=== PATIENT | male | born 1935 | race Caucasian/White ===

== ENCOUNTER 2017-03-07 14:41 | Observation (INO) | payer MEDICARE, OTHER ==
[2017-03-07] MEDS ORDERED: Zolpidem 5 MG Tab PO PRN (15:04)
[2017-03-07] MEDS ORDERED: Pantoprazole 40 MG Vial IVPUSH ONE (15:04)
[2017-03-07] MEDS ORDERED: Ondansetron 4 MG Tab.DIS PO PRN (15:04)
[2017-03-07] MEDS ORDERED: Acetaminophen 325 MG Tab PO PRN (15:04)
[2017-03-07] MEDS ORDERED: Lactated Ringers 1,000 ML IV SCH (15:15)
[2017-03-07 17:03] LABS: CHLORIDE,CL 102 mEq/L (98-106); SODIUM,NA 140 mEq/L (136-145)
[2017-03-07] MEDS ORDERED: FLU Vacc QS 2017-18 (36mos UP)/PF 60 MCG/0.5 ML Syringe IM ONE (17:30)
[2017-03-08] MEDS ORDERED: Aspirin 81 MG Tab.EC PO SCH (08:00)
[2017-03-08 08:35] VITALS: BP 146/92
--- NOTE | 2017-03-08 19:58 | PCM.DCSUM1 ---
Discharge Summary - Hospital Course Free Text/Narrative:: Patient was admitted by Dr. Cordero for diarrhea, feeling lightheaded and weak for one week. He had tried taking Mylanta without relief. No fevers. Patient states abdomen was sore but no considerable abdominal discomfort, bloating or blood in stools. Hasn't noted any weight loss. Admitted for rehydration, labs , stool studies and observation. - Discharge Data Discharge Date: 03/08/17 Discharge Disposition: Home, Self-Care 01 Condition: Good - Patient Summary/Data Complications: none Hospital Course: Patient is feeling much better this am. No fevers. Were able to collect stool for studies last evening, c diff negative. Patient is feeling stronger, no further lightheadedness. Up and around this am without complaint. Abdomen soft and nontender. Initial labs done on admit show WBC of 8.6, CRP negative. UA clear. BMP stable. Discharge home on Questran daily for ongoing diarrhea. Follow up with Dr. Cordero in 2 weeks. - Patient Instructions Diet: Usual Diet as Tolerated Activity: As Tolerated - Discharge Plan Prescriptions/Med Rec: Cholestyramine (With Sugar) [Questran Powder] 2 gm PO DAILY #1 canister Home Medications: Home Meds Aspirin [Halfprin] 81 mg PO DAILY 10/10/13 [History] Calcium Carbonate [Calcium] 500 mg PO QAM 10/10/13 [History] Cyanocobalamin (Vitamin B12) [Vitamin B12] 1,000 mcg IM Q3M 10/10/13 [History] Fish Oil/[place]-3 Fatty Acids [Fish Oil 1,000 MG] 1 each PO BID 10/10/13 [History ] Ibuprofen/Diphenhydramine Cit [Advil PM Caplet] 2 tab PO BEDTIME 10/10/13 [ History] Hydroxyurea [Hydrea] 500 mg PO DAILY 03/07/17 [History] Sildenafil Citrate [Sildenafil] 2.5 - 5 tab PO ASDIRECTED 03/07/17 [History] Cholestyramine (With Sugar) [Questran Powder] 2 gm PO DAILY #1 canister [Rx] Referrals: Vahe Cordero MD [Primary Care Provider] - (Follow up in [address] Cordero) - Discharge Summary/Plan Comment DC Time >30 min.: No Discharge Summary/Plan Comment: Discharge home on Questran daily. See Dr. Cordero in 2 weeks. - General Info Date of Service: 03/08/17 Admission Dx/Problem (Free Text: Diarrhea Functional Status: Reports: Pain Controlled, Tolerating Diet, Ambulating - Review of Systems General: Denies: Fever, Weakness HEENT: Reports: No Symptoms Pulmonary: Denies: Shortness of Breath, Cough, Sputum Cardiovascular: Denies: Chest Pain, Edema, Lightheadedness Gastrointestinal: Reports: Diarrhea. Denies: Abdominal Pain, Nausea, Vomiting Genitourinary: Reports: No Symptoms Musculoskeletal: Reports: No Symptoms Skin: Reports: No Symptoms Neurological: Reports: No Symptoms Psychiatric: Reports: No Symptoms - Patient Data Vitals - Most Recent: Last Vital Signs Temp 96.6 F 03/08/17 08:00 Pulse 62 03/08/17 08:00 Resp 18 03/08/17 08:00 BP 146/92 H 03/08/17 08:00 Pulse Ox 96 03/08/17 08:00 Weight - Most Recent: 164 lb 1.6 oz I&O - Last 24 hours: Intake & Output 03/08/17 03/08/17 03/08/17 06:59 14:59 22:59 Intake Total 750 Balance 750 Lab Results - Last 24 hrs: Laboratory Results - last 24 hr 03/07/17 Range/Units 15:04 Urine Color Yellow (YELLOW) Urine Appearance Clear (CLEAR) Urine pH 7.0 (4.5-8.0) Ur Specific [place] 1.015 (1.003-1.020) Urine Protein Negative (NEGATIVE) mg/dL Urine Glucose (UA) Negative (NEGATIVE) mg/dL Urine Ketones Negative (NEGATIVE) mg/dL Urine Occult Blood Negative (NEGATIVE) Urine Nitrite Negative (NEGATIVE) Urine Bilirubin Negative (NEGATIVE) Urine Urobilinogen 0.2 (0.2-1.0) EU/dL Ur Leukocyte Esterase Negative (NEGATIVE) Urine RBC Not seen (0-5) /HPF Urine WBC Not seen (0-5) /HPF FELICITAS Results - Last 24 hrs: Microbiology 03/07/17 15:08 C. difficile DNA Amplification - Final Stool / Feces NEGATIVE CDIFF BY DNA Med Orders - Current: Current Medications Discontinued Medications Acetaminophen (Tylenol) 650 mg PO Q4H PRN PRN Reason: Pain (Mild 1-3)/fever Aspirin (Halfprin) 81 mg PO DAILY MILIND Last Admin: 03/08/17 09:05 Dose: Not Given Lactated Ringer's (Ringers, Lactated) 1,000 mls @ 75 mls/hr IV ASDIRECTED [facility] Last Admin: 03/07/17 16:51 Dose: 75 mls/hr Influenza Virus Vaccine (Pharmacy To Dose - Influenza Vaccine) 1 each IM ONETIME ONE Stop: 03/07/17 17:12 Influenza Virus Vaccine (Fluzone Quad [id number]) 60 mcg IM .ONCE ONE Stop: 03/07/17 17:31 Last Admin: 03/07/17 18:27 Dose: 60 mcg Ondansetron HCl (Zofran Odt) 4 mg PO Q4H PRN PRN Reason: nausea, able to take PO Pantoprazole Sodium (Protonix Iv) 40 mg IVPUSH ONETIME ONE Stop: 03/07/17 15:05 Last Admin: 03/07/17 16:51 Dose: 40 mg Zolpidem Tartrate (Ambien) 5 mg PO BEDTIME PRN PRN Reason: Sleep - Exam General: Reports: Alert, Oriented HEENT: Reports: Mucous Membr. Moist/[place] Neck: Reports: Supple Lungs: Reports: Clear to Auscultation, Normal Respiratory Effort Cardiovascular: Reports: Regular Rate, Regular Rhythm GI/Abdominal Exam: Normal Bowel Sounds, Soft, Non-Tender Extremities: Normal Inspection, No Pedal Edema Skin: Reports: Warm, Dry Neurological: Reports: No New Focal Deficit *Q Meaningful Use (DIS) - VTE *Q VTE Criteria *Q: - Stroke *Q Stroke Criteria *Q: - AMI *Q AMI Criteria *Q:
== END 2017-03-08 11:22 | disposition home or self-care (01) ==
LOC: CC.MS 14:41 → UNDOADMOB 14:41 → CC.MS 15:04
PROVIDERS: ADMIT Family Medicine; ATTEND Family Medicine
DX: R19.7 Diarrhea, unspecified (principal); I25.10 Atherosclerotic heart disease of native coronary artery without angina pectoris; I25.2 Old myocardial infarction; G47.30 Sleep apnea, unspecified; E78.5 Hyperlipidemia, unspecified; E53.8 Deficiency of other specified B group vitamins; Z79.82 Long term (current) use of aspirin; Z79.899 Other long term (current) drug therapy; Z98.890 Other specified postprocedural states; Z72.0 Tobacco use; Z23 Encounter for immunization
CPT/HCPCS: 36415; 74020; 80053; 81001; 82150; 85025; 86140; 87045; 87046; 87147; 87425; 87493; 96361; 96374; 99217; 99220; C9113; G0008; G0378; J7120; 90686

== ENCOUNTER 2017-12-04 09:23 | Emergency (ER) | payer MEDICARE, OTHER ==
--- NOTE | 2017-12-04 10:20 | EDM.PDOC ---
ED HPI GENERAL MEDICAL PROBLEM - General Chief Complaint: Abdominal Pain Stated Complaint: VOMIT BLOOD Time Seen by Provider: 12/04/17 10:05 Source of Information: Reports: Patient History Limitations: Reports: No Limitations - History of Present Illness INITIAL COMMENTS - FREE TEXT/NARRATIVE: States when he woke up this morning he vomited a large amount of dark blood and then had a large dark bloody diarrhea stool. He had large dark bloody stool when arriving in the ER here. He is nauseated. Feels lightheaded. States that he does take advil PM at night otherwise no other NSAID use. Has never had bleeding noted before. Does have some midepigastric discomfort. Has never had ulcer issues in the past Onset: Today Location: Reports: Abdomen Quality: Reports: Ache Associated Symptoms: Reports: Nausea/Vomiting, Weakness. Denies: Chest Pain, Shortness of Breath Lower Abdomen Pain Score (Numeric/FACES): 3 - Related Data Allergies Allergy/AdvReac Type Severity Reaction Status Date / Time No Known Allergies Allergy Verified 12/04/17 09:38 Home Meds: Home Meds Aspirin [Halfprin] 81 mg PO DAILY 10/10/13 [History] Calcium Carbonate [Calcium] 500 mg PO QAM 10/10/13 [History] Cyanocobalamin (Vitamin B12) [Vitamin B12] 1,000 mcg IM Q3M 10/10/13 [History] Fish Oil/[place]-3 Fatty Acids [Fish Oil 1,000 MG] 1 each PO BID 10/10/13 [History ] Ibuprofen/Diphenhydramine Cit [Advil PM Caplet] 2 tab PO BEDTIME 10/10/13 [ History] Sildenafil Citrate [Sildenafil] 2.5 - 5 tab PO ASDIRECTED 03/07/17 [History] Past Medical History HEENT History: Reports: Impaired Vision Cardiovascular History: Reports: MO, Stents Respiratory History: Reports: Sleep Apnea Genitourinary History: Reports: BPH Hematologic History: Reports: Blood Transfusion(s) - Past Surgical History GI Surgical History: Reports: Hernia, Inguinal Social & Family History - Tobacco Use Smoking Status *Q: Never Smoker Second Hand Smoke Exposure: No - Caffeine Use Caffeine Use: Reports: Tea - Living Situation & Occupation Living situation: Reports: , with Spouse Occupation: Retired ED ROS GENERAL - Review of Systems Review Of Systems: See Below Constitutional: Reports: Weakness. Denies: Fever, Chills HEENT: Reports: No Symptoms Respiratory: Reports: No Symptoms Cardiovascular: Reports: No Symptoms GI/Abdominal: Reports: Abdominal Pain, Bloody Stool, Diarrhea, Hematochezia, Nausea, Vomiting : Reports: No Symptoms Musculoskeletal: Reports: No Symptoms Skin: Reports: No Symptoms Neurological: Reports: No Symptoms ED EXAM, GI/ABD - Physical Exam Exam: See Below Exam Limited By: No Limitations General Appearance: Alert, WD/WN, Mild Distress Ears: Normal External Exam, Normal Canal Nose: Normal Inspection Throat/Mouth: Normal Inspection, Normal Oropharynx, No Airway Compromise Head: Atraumatic, Normocephalic Neck: Normal Inspection, Supple, Non-Tender, Full Range of Motion Respiratory/Chest: No Respiratory Distress, Lungs Clear, Normal Breath Sounds Cardiovascular: Regular Rate, Rhythm, No Edema, No Murmur GI/Abdominal Exam: Normal Bowel Sounds, Soft, Tender (midepigastric area.) Back Exam: Normal Inspection, Full Range of Motion Extremities: Normal Inspection, Normal Range of Motion, Non-Tender, No Pedal Edema, Normal Capillary Refill Neurological: Alert, Oriented Skin Exam: Warm, Dry, Intact Course - Vital Signs Last Recorded V/S: Last Vital Signs Temp 98.3 F 12/04/17 10:57 Pulse 84 12/04/17 11:35 Resp 20 12/04/17 10:57 BP 128/72 12/04/17 11:35 Pulse Ox 98 12/04/17 10:57 - Orders/Labs/Meds Labs: Laboratory Tests 12/04/17 12/04/17 12/04/17 Range/Units 09:55 09:55 09:55 WBC 14.3 H (5.0-10.0) 10^3/uL RBC 3.61 L (4.50-6.00) 10^6/uL Hgb 12.3 L (14.0-18.0) g/dL Hct 38.2 L (40.0-54.0) % MCV 105.8 H (82.0-94.0) fL MCH 34.1 H (27.0-32.0) pg MCHC 32.2 L (33.0-38.0) g/dL RDW Coeff of Ileana 12.0 (11.0-15.0) % Plt Count 712 H (150-400) 10^3/uL Neut % (Auto) 79.2 (35-85) % Lymph % (Auto) 11.4 (10-55) % [place] % (Auto) 9.0 (0-16) % Eos % (Auto) 0.1 (0-5) % Baso % (Auto) 0.3 (0-3) % Neut # (Auto) 11.29 H (1.80-7.00) 10^3/uL Lymph # (Auto) 1.62 (1.00-4.80) 10^3/uL [place] # (Auto) 1.29 H (0.00-0.80) 10^3/uL Eos # (Auto) 0.02 (0.00-0.45) 10^3/uL Baso # (Auto) 0.04 10^3/uL Sodium 137 (136-145) mEq/L Potassium 4.7 D (3.5-5.0) mEq/L Chloride 105 (98-106) mEq/L Carbon Dioxide 28 (21-32) mmol/L BUN 57 H D (7-18) mg/dL Creatinine 1.2 (0.7-1.3) mg/dL Est Cr Clr Drug Dosing 48.51 mL/min Estimated GFR (MDRD) 58 L (>=60) mL/min Glucose 149 H (75-99) mg/dL Calcium 8.1 L (8.4-10.1) mg/dL Total Bilirubin 0.8 (0.0-1.0) mg/dL AST 14 L (15-37) U/L ALT 16 (12-78) U/L Alkaline Phosphatase 35 L (46-116) U/L Total Protein 6.6 (6.4-8.2) g/dL Albumin 3.3 L (3.4-5.0) g/dL Urine Color Yellow (YELLOW) Urine Appearance Clear (CLEAR) Urine pH 6.0 (4.5-8.0) Ur Specific [place] 1.015 (1.003-1.020) Urine Protein Negative (NEGATIVE) mg/dL Urine Glucose (UA) Negative (NEGATIVE) mg/dL Urine Ketones Negative (NEGATIVE) mg/dL Urine Occult Blood Negative (NEGATIVE) Urine Nitrite Negative (NEGATIVE) Urine Bilirubin Negative (NEGATIVE) Urine Urobilinogen 0.2 (0.2-1.0) EU/dL Ur Leukocyte Esterase Negative (NEGATIVE) Urine RBC Not seen (0-5) /HPF Urine WBC Not seen (0-5) /HPF Blood Type Gel Antibody Screen Crossmatch 12/04/17 Range/Units 11:38 WBC (5.0-10.0) 10^3/uL RBC (4.50-6.00) 10^6/uL Hgb (14.0-18.0) g/dL Hct (40.0-54.0) % MCV (82.0-94.0) fL MCH (27.0-32.0) pg MCHC (33.0-38.0) g/dL RDW Coeff of Ileana (11.0-15.0) % Plt Count (150-400) 10^3/uL Neut % (Auto) (35-85) % Lymph % (Auto) (10-55) % [place] % (Auto) (0-16) % Eos % (Auto) (0-5) % Baso % (Auto) (0-3) % Neut # (Auto) (1.80-7.00) 10^3/uL Lymph # (Auto) (1.00-4.80) 10^3/uL [place] # (Auto) (0.00-0.80) 10^3/uL Eos # (Auto) (0.00-0.45) 10^3/uL Baso # (Auto) 10^3/uL Sodium (136-145) mEq/L Potassium (3.5-5.0) mEq/L Chloride (98-106) mEq/L Carbon Dioxide (21-32) mmol/L BUN (7-18) mg/dL Creatinine (0.7-1.3) mg/dL Est Cr Clr Drug Dosing mL/min Estimated GFR (MDRD) (>=60) mL/min Glucose (75-99) mg/dL Calcium (8.4-10.1) mg/dL Total Bilirubin (0.0-1.0) mg/dL AST (15-37) U/L ALT (12-78) U/L Alkaline Phosphatase (46-116) U/L Total Protein (6.4-8.2) g/dL Albumin (3.4-5.0) g/dL Urine Color (YELLOW) Urine Appearance (CLEAR) Urine pH (4.5-8.0) Ur Specific [place] (1.003-1.020) Urine Protein (NEGATIVE) mg/dL Urine Glucose (UA) (NEGATIVE) mg/dL Urine Ketones (NEGATIVE) mg/dL Urine Occult Blood (NEGATIVE) Urine Nitrite (NEGATIVE) Urine Bilirubin (NEGATIVE) Urine Urobilinogen (0.2-1.0) EU/dL Ur Leukocyte Esterase (NEGATIVE) Urine RBC (0-5) /HPF Urine WBC (0-5) /HPF Blood Type A POSITIVE Gel Antibody Screen Negative Crossmatch See Detail Meds: Medications Discontinued Medications Generic Name Dose Route Start Last Admin Trade Name Freq PRN Reason Stop Dose Admin Sodium Chloride 1,000 mls @ 250 mls/hr 12/04/17 11:15 12/04/17 11:05 Normal Saline IV 100 mls/hr ASDIRECTED MILIND Administration Pantoprazole Sodium 40 mg 12/04/17 11:15 12/04/17 11:22 Protonix Iv IVPUSH 40 mg Q24H MILIND Administration Pantoprazole Sodium 40 mg 12/04/17 11:15 12/04/17 11:22 Protonix Iv IVPUSH Not Given Q24H MILIND - Re-Assessments/Exams Free Text/Narrative Re-Assessment/Exam: 12/04/17 11:[address] Cordero and reviewed labs with him. He does recommend that he is transferred out as there is no availability to do scopes here 1120 Did call and talked to Dr. Hu ER. He did accept pt in transfer. He did request O- blood be sent with in case of further hypotension or vomiting. Will be transferred per ALS ambulance. Departure - Departure Time of Disposition: 11:39 Disposition: DC/Tfer to Acute Hospital 02 Condition: Fair Clinical Impression: GI bleeding Qualifiers: GI bleed type/associated pathology: unspecified gastrointestinal hemorrhage type Qualified Code(s): K92.2 - Gastrointestinal hemorrhage, unspecified Hypotension Qualifiers: Hypotension type: hypotension due to hypovolemia Qualified Code(s): I95.89 - Other hypotension; E86.1 - Hypovolemia - Discharge Information *PRESCRIPTION DRUG MONITORING PROGRAM REVIEWED*: Not Applicable *COPY OF PRESCRIPTION DRUG MONITORING REPORT IN PATIENT MARGARET: Not Applicable Referrals: Vahe Cordero MD [Primary Care Provider] - Forms: ED Department Discharge Additional Instructions: Transfer to [facility] in [place] per ALS with unit of O- in case he continues to vomit blood and remains hypotensive per recommendation of Dr. Hu. - Problem List & Annotations (1) GI bleeding SNOMED Code(s): 12912233 Code(s): K92.2 - GASTROINTESTINAL HEMORRHAGE, UNSPECIFIED Status: Acute Priority: High Qualifiers: GI bleed type/associated pathology: unspecified gastrointestinal hemorrhage type Qualified Code(s): K92.2 - Gastrointestinal hemorrhage, unspecified - Assessment/Plan Assessment:: GI bleeding with hypotension Plan: Transfer to [facility] in [place]
[2017-12-04] MEDS ORDERED: Pantoprazole 40 MG Vial IVPUSH SCH ×2 (11:15)
[2017-12-04] MEDS ORDERED: Sodium Chloride 0.9% 1,000 ML IV SCH (11:15)
[2017-12-04 11:35] VITALS: BP 128/72
== END 2017-12-04 12:15 ==
LOC: CC.ED 09:23
DX: K92.2 Gastrointestinal hemorrhage, unspecified (principal); I95.89 Other hypotension; E86.1 Hypovolemia; I25.2 Old myocardial infarction; Z79.82 Long term (current) use of aspirin; Z79.899 Other long term (current) drug therapy
CPT/HCPCS: 36415; 74019; 80053; 81001; 85025; 86850; 86900; 86901; 86920; 86922; 96361; 96374; 99284; 99285; C9113; J7030